=== PATIENT | female | born 1995 | race African-American/Black ===

== ENCOUNTER 2017-05-24 23:55 | Emergency (ER) | payer SELFPAY ==
[~2017-05-24] VITALS: Ht 170.2 cm; Wt 56.0 kg
[2017-05-25] MEDS ORDERED: ZIPRASIDONE 20 MG INJ IM ONE ×2 (00:36→01:00)
[2017-05-25] MEDS ORDERED: LORazepam 2 MG/ML, 1ML ONE (00:37)
[2017-05-25 00:59] LABS: HEMATOCRIT 43.2 % (34.6-47.8); HEMOGLOBIN 14.2 g/dL (11.7-16.4); WHITE BLOOD COUNT 9.2 x10^3/uL (3.4-10)
[2017-05-25] MEDS ORDERED: SODIUM CHLORIDE 0.9% 1,000ML IVBOLUS ONE (01:00)
[2017-05-25] MEDS ORDERED: LORazepam 2 MG/ML, 1ML IVPush ONE (01:00)
[2017-05-25 01:09] LABS: ASPARTATE AMINO TRANSFERASE 24 U/L (15-37); BLOOD UREA NITROGEN 12 mg/dL (7-18)
[2017-05-25 01:14] LABS: ACETAMINOPHEN < 2 mcg/mL (10-30)
[2017-05-25 07:15] VITALS: BP 109/74
== END 2017-05-25 07:17 | disposition home or self-care (01) ==
LOC: ED 23:59
DX: F12.951 Cannabis use, unspecified with psychotic disorder with hallucinations (principal); F22 Delusional disorders; R41.0 Disorientation, unspecified; F17.200 Nicotine dependence, unspecified, uncomplicated
CPT/HCPCS: 36415; 80053; 80307; 80329; 84703; 85025; 93005; 96372; 96374; 99285; J2060; J3486; G0479; G0480